=== PATIENT | female | born 1945 | race Caucasian/White ===

== ENCOUNTER 2018-06-29 07:33 | Observation (INO) ==
[2018-06-29] MEDS ORDERED: LACTATED RINGERS 1,000 ML IV ONE (07:37)
[2018-06-29] MEDS ORDERED: HYDROmorphone 2 MG/ML VIAL IV PRN (07:44)
--- NOTE | 2018-06-29 07:47 | Emergency Department Note ---
Abdominal Pain HPI - General Chief Complaint: Abdominal Pain Stated Complaint: upper abd pain, worried about gallbladder Time Seen by Provider: 06/29/18 07:38 Source: patient Mode of arrival: ambulatory Limitations: no limitations - History of Present Illness HPI Narrative: This patient has been having epigastric to right upper quadrant pain since last night. She does feel up in her chest and into her back. No associated nausea. She has a history of GERD but is never had gallbladder disease. MD Complaint: abdominal pain Onset (ago): hour(s) Consistency: constant Location: RUQ, epigastric Quality: stabbing, aching Radiation: back, chest Improves with: nothing Worsens with: eating - Related Data Home Medications Medication Instructions Recorded Confirmed coenzyme Q10 100 mg capsule 100 mg PO QDAY cap 04/02/15 04/02/18 cholecalciferol (vitamin D3) 1,000 1,000 unit PO ONCE cap 05/11/15 04/02/18 unit capsule alpha lipoic acid 600 mg capsule 600 mg PO ONCE 11/06/16 04/02/18 multivitamin tablet 1 tab PO QAM 11/12/17 04/02/18 fortify Probiotic 1 cap PO DAILY 01/12/18 04/02/18 Previous Rx's Medication Instructions Recorded ezetimibe 10 mg tablet 10 mg PO QDAY #90 tab 01/27/18 metoprolol succinate ER 25 mg 25 mg PO QDAY #90 tab 01/27/18 tablet,extended release 24 hr spironolactone 25 mg tablet 25 mg PO QDAY #90 tab 01/27/18 Allergies Allergy/AdvReac Type Severity Reaction Status Date / Time venom-wasp [Wasp Venom] Allergy Unknown Dizziness Verified 06/29/18 07:36 atorvastatin AdvReac Unknown off balance Verified 06/29/18 07:36 Review of Systems All systems ED: reviewed and negative except as stated. Abdominal Pain PMH - Past Medical History Medical history: Reports: GERD, hyperlipidemia, hypertension Surgical history ED: Reports: hysterectomy - Social History Smoking status: Former smoker Physical Exam Limitations: no limitations General appearance: alert Head: atraumatic Eye: Present: normal appearance ENT: normal exam Neck: Present: normal inspection Chest: Present: normal inspection Respiratory: Present: normal lung sounds bilaterally Cardiovascular: Present: regular rate, normal rhythm, normal heart sounds Abdominal: Present: soft, tenderness. Absent: distention, guarding, rebound, rigidity Abdominal tenderness: Present: RUQ, epigastrium Neurological: Present: alert Psychiatric: Present: normal affect Skin: Present: warm, dry, intact Course Vital Signs Temperature 97.8 F 06/29/18 07:34 Pulse Rate 87 06/29/18 07:34 Respiratory Rate 16 06/29/18 07:34 Blood Pressure 168/74 06/29/18 07:34 Pulse Oximetry (%) 94 06/29/18 07:34 Temperature 97.8 F 06/29/18 07:34 Pulse Rate 73 06/29/18 08:41 Respiratory Rate 16 06/29/18 07:34 Blood Pressure 137/65 06/29/18 08:41 Pulse Oximetry (%) 92 06/29/18 08:41 Abdominal Pain - MDM Narrative Medical decision making narrative: This patient has a gallbladder full of stones but normal bile ducts. I discussed case with Dr. Coe and she will be admitted to the surgery service. - Lab Data Lab results reviewed: Yes I reviewed the patient's lab results. Result diagrams: 06/29/18 07:54 06/29/18 07:54 Lab Results 06/29/18 06/29/18 06/29/18 Range/Units 07:54 07:54 07:54 WBC 6.3 (4.5-11.0) K/mcL RBC 4.96 (4.00-5.20) M/mcL Hgb 14.6 (12.0-15.0) g/dL Hct 43.6 (36.0-48.0) % MCV 87.8 (80.0-100.0) fL MCH 29.4 (26.0-34.0) pg MCHC 33.5 (31.0-36.0) g/dL RDW 14.8 H (11.5-14.5) % Plt Count 242 (140-440) K/mcL MPV 9.0 (7.4-10.4) fL Gran % 74.7 (38.0-78.0) % Lymph % (Auto) 20.1 (15.5-49.0) % [place] % (Auto) 3.8 (1.0-12.0) % Eos % (Auto) 1.3 (0.0-7.0) % Baso % (Auto) 0.1 (0.0-2.0) % Gran # 4.7 (1.8-8.0) K/mcL Lymph # (Auto) 1.3 L (1.5-4.8) K/mcL [place] # (Auto) 0.2 (0.1-0.9) K/mcL Eos # (Auto) 0.1 (0.0-0.7) K/mcL Baso # (Auto) 0 (0.0-0.3) K/mcL Sodium 141 (133-145) mmol/L Potassium 4.0 (3.3-5.1) mmol/L Chloride 102 (96-108) mmol/L Carbon Dioxide 24 (22-30) mmol/L Anion Gap 15.0 (8-16) BUN 10 (8-23) mg/dl Creatinine 0.7 (0.6-1.1) mg/dl GFR Calculation 85 Glucose 112 H (70-105) mg/dL Calcium 9.4 (8.6-10.4) mg/dl Total Bilirubin 0.4 (0.0-1.0) mg/dL AST 57 H (0-37) U/l ALT 124 H (0-40) U/l Alkaline Phosphatase 110 (39-117) U/L Troponin T < 0.01 (0-0.03) ng/ml Total Protein 7.2 (5.9-8.4) gm/dL Albumin 4.1 (3.2-5.2) gm/dL Globulin 3.1 (2.2-3.7) gm/dL Albumin/Globulin Ratio 1.3 (1.0-2.3) - Radiology Data Radiology results reviewed: Yes I reviewed the patient's radiology results. Disposition Pt seen by CODING ASSISTANT/PA only: No Clinical Impression: Cholelithiasis Disposition: Xfer As Outpt/Obs ([facility]) Condition: Fair Referrals: Paz Worley, MARGARITA, [facility] [Primary Care Provider] - Time of Disposition: 08:59
[2018-06-29 08:26] LABS: Basophils # (Auto) 0 K/mcL (0.0-0.3); Basophils % (Auto) 0.1 % (0.0-2.0); Eosinophils # (Auto) 0.1 K/mcL (0.0-0.7); Eosinophils % (Auto) 1.3 % (0.0-7.0); Granulocytes % (Auto) 74.7 % (38.0-78.0); Lymphocytes # (Auto) 1.3 K/mcL (1.5-4.8); Lymphocytes % (Auto) 20.1 % (15.5-49.0); Mean Cell Volume 87.8 fL (80.0-100.0); Mean Corpuscular HGB Conc 33.5 g/dL (31.0-36.0); Mean Corpuscular Hemoglobin 29.4 pg (26.0-34.0); Monocytes # (Auto) 0.2 K/mcL (0.1-0.9); Monocytes % (Auto) 3.8 % (1.0-12.0); Platelet Count 242 K/mcL (140-440); RBC 4.96 M/mcL (4.00-5.20); Red Cell Distribution Width 14.8 % (11.5-14.5)
[2018-06-29 08:46] LABS: ALT/SGPT 124 U/l (0-40); Albumin 4.1 gm/dL (3.2-5.2); Albumin/Globulin Ratio 1.3 (1.0-2.3); Alkaline Phosphatase 110 U/L (39-117); Blood Urea Nitrogen 10 mg/dl (8-23)
--- NOTE | 2018-06-29 08:56 | Ultrasound Report ---
History: Mid epigastric pain FINDINGS: The liver is normal in size and homogeneous. Is no evidence of a mass or infiltrative process. Doppler shows normal blood flow in the hepatic and portal veins. The gallbladder is filled with multiple calcified stones. The gallbladder wall is 2 mm in thickness and there is no tenderness while scanning over the gallbladder. No para cholecystic fluid collection is present. The common bile duct measures 3.5 mm. The pancreas is normal in size. There is mild increased echogenicity which suggests fatty infiltration. Pancreatic duct is nondilated. No ascites is present and there is no evidence of a mass in the right upper quadrant. IMPRESSION: Cholelithiasis Dr. Jones was called with the results Interpreted and Authenticated by: Cody Carter 06/29/18
[2018-06-29 09:02] LABS: Lipase 711 U/L (7-60)
[2018-06-29 10:40] LABS: Appearance,Urine CLEAR; Bilirubin,Urine NEG (NEG); Color,Urine STRAW; Glucose,Urine (UA) NEGATIVE (NEG); Leukocyte Esterase,Urine NEG /uL (NEG); Protein,Urine NEG (NEG); Specific Gravity,Urine 1.009 (1.000-1.035); Urine Blood NEG mg/dL (<0.03); Urobilinogen,Urine NEG (NEG)
[2018-06-29] MEDS ORDERED: ONDANSETRON 4 MG/2 ML VIAL IV PRN (10:43)
--- NOTE | 2018-06-29 12:41 | Consultation ---
DATE OF CONSULTATION: 06/29/2018 CHIEF COMPLAINT: The patient is seen in consultation at the request of Dr. Jones for midepigastric abdominal pain and finding of cholelithiasis. HISTORY OF PRESENT ILLNESS: The patient is a 73-year-old woman who presented to the emergency department with complaints of mid upper abdominal pain that has been persistent since yesterday. In recounting the onset of her symptoms, the patient states that her pain initially started late Friday night after dinner. At that time she thought she was having symptoms of reflux as this is a known issue for her. The pain, however, was persistent and seemed to worsen on Friday. She had gone to the local fair but because of the degree of pain she had to leave earlier than planned. She states she did not eat much yesterday. Her last real meal was Friday night. She denies any nausea or vomiting. She describes her pain as a persistent sharp pain that goes through her mid upper abdomen and into her back and seems to also wrap around the upper abdomen. At times she states that it has a feeling like she has a large bubble of gas that might be improved if she were able to belch. She has noted that it hurts to take a deep breath. She also states that when she is still the pain is fairly tolerable, but worsens when she is up and moving. She states that this pain is not typical of her reflux pain. She denies any radiation into her shoulder or her jaw. She denies any numbness. She denies a feeling of dyspnea but just states that it hurts if she takes a deep breath. She did try taking 2 Prilosec and 2 Tylenol at home yesterday to help with her symptoms, but this did not offer significant help. She states the Tylenol seemed to just dull the pain a little. REVIEW OF SYSTEMS: CONSTITUTIONAL: Denies fevers or chills. No unintended or unexpected weight loss. CARDIOVASCULAR: Denies chest pressure or pain unrelated to current symptoms. She reports that she did have a cardiac catheterization about 3 or 4 years ago in [place] when she was having symptoms of reflux disease, but this was reportedly normal. The patient states that she is physically active daily and walks daily. She states that she can walk up 2 flights of stairs without shortness of breath, chest pain or pressure or needing to stop. RESPIRATORY: Denies any new onset of cough or production of sputum. GI: Abdominal pain without nausea or vomiting as per HPI. No history of jaundice or hepatitis. Patient reports a history of diverticulosis with diverticulitis in the past. States she is scheduled for surgery in early August in [place]. : No dysuria or hematuria. She does report an episode of her urine appearing brown/jesús colored in January but this resolved on its own. HEMATOLOGIC: No history of DVT or PE. No history of blood transfusion. NEUROLOGIC: No history of seizure disorder, stroke, or TIA. ENDOCRINE: Denies any history of diabetes. ALLERGIES: No known drug allergies. PAST MEDICAL HISTORY: 1. Gastroesophageal reflux disease. 2. Hypertension. 3. Hyperlipidemia. 4. Left anterior fascicular block. 5. History of cardiac catheterization in 2012, reportedly normal (symptoms were related to reflux disease). 6. Prior cataract surgery. 7. Hysterectomy with left ovary spared. FAMILY HISTORY: Cervical cancer in her daughter. MEDICATIONS: 1. Ezetimibe 10 mg daily. 2. Metoprolol succinate ER 25 mg daily. 3. Multivitamin daily. 4. Spironolactone 25 mg daily. SOCIAL HISTORY: The patient is and accompanied at this visit by her . The patient reports that she is a past smoker of approximately 1 pack every 3 months, which she did for a limited time of only 1 year. She denies any recreational drug use, reports occasional alcohol use, approximately 1 to 2 drinks a month. PHYSICAL EXAMINATION: VITAL SIGNS: Temperature 97.8, pulse 73, respirations 18, blood pressure 144/73, O2 saturation is 95% on room air. GENERAL: Patient is a well-developed, well-nourished woman who appears her stated age in no acute distress. HEENT: Head is normocephalic. Sclerae are white. Mucous membranes are moist. NECK: Supple. CHEST: Breath sounds are clear to auscultation bilaterally. No rales or wheezes are heard. No use of accessory respiratory musculature. She is a little hesitant to take a deep breath which she says is related to pain in her mid-upper abdomen. CARDIOVASCULAR: Reveals a regular rhythm and rate. ABDOMEN: Mildly obese, soft, tender in the midepigastric region with some mild tenderness in the right upper quadrant. Tenderness is greatest in the midepigastric region. No Diaz sign present. No rigidity or rebound tenderness of the abdomen. There are scars at the umbilicus and in the lower abdomen from previous surgery. EXTREMITIES: Warm without edema or cyanosis. DP pulses are palpable bilaterally. LABS AND STUDIES: CBC drawn in the emergency department shows a normal white blood cell count of 6.3 without a left shift. Hemoglobin is 14.6, hematocrit 43.6 and platelets 242. Serum chemistry shows sodium of 141, potassium 4.0, chloride 102, CO2 24, BUN 10, creatinine 0.7, glucose 112, calcium 9.4, total bilirubin 0.4, AST is 57, ALT 124, alkaline phosphatase 110, total protein 7.2, albumin 4.1. Lipase is elevated at 711. Troponin T is normal at less than 0.01. Urinalysis is negative for ketones, blood, nitrites, bilirubin and leukocyte esterase. Ultrasound performed in the emergency department of the right upper abdomen shows the liver is normal in size, without mass. Gallbladder is noted to have multiple calcified stones with gallbladder wall of 2 mm thickness without pericholecystic fluid. No tenderness noted while scanning over the gallbladder. Common bile duct is measuring at 3.5 mm. Pancreas was noted to be of normal size without any dilatation of the pancreatic duct. Mild increased echogenicity suggesting fatty infiltration of the pancreas is noted. FINAL IMPRESSION: By radiologist, cholelithiasis. ASSESSMENT AND PLAN: A 73-year-old woman with mid epigastric pain, elevated lipase and finding of cholelithiasis. I reviewed the imaging results and labs with the patient, which suggests gallstone pancreatitis. This correlates with the history that she gives of progression of her pain and its location and findings on exam. At this time, recommendation is that she remain n.p.o. and be hydrated with fluids and her exam followed along with her labs to allow the pancreatitis to resolve. Because of the presence of gallstones in the setting of pancreatitis, cholecystectomy is eventually recommended for treatment of this. The patient states that she is already scheduled for surgery in early August for her colon and is wondering if this could be delayed and done at the same time as that. She also reports that she and her are scheduled to travel to [place] for follow-up appointments for him with his doctors there and she does not want to have anything interfere with that timing. I explained to the patient in the usual recommendation that once the pancreatitis resolves, cholecystectomy should be performed within a short period to minimize the risk of recurrence of pancreatitis and other complications from the cholelithiasis. However, given her concerns and other previously scheduled appointments, we can discuss timing of cholecystectomy once we know the progression of her current illness. [email or web address]:yael Job ID: [id number] Doc ID: [id number] Amber Coe MD
[2018-06-29] MEDS: LACTATED RINGERS 1,000 ML IV SCH ×2 (13:28→22:55)
[2018-06-29] MEDS: ACETAMINOPHEN 1,000 MG/100 ML BOTTLE IV PRN ×2 (14:37→22:59)
[2018-06-30 06:27] LABS: Basophils # (Auto) 0 K/mcL (0.0-0.3); Basophils % (Auto) 0.3 % (0.0-2.0); Eosinophils # (Auto) 0.1 K/mcL (0.0-0.7); Eosinophils % (Auto) 1.6 % (0.0-7.0); Granulocytes % (Auto) 66.1 % (38.0-78.0); Lymphocytes # (Auto) 1.6 K/mcL (1.5-4.8); Lymphocytes % (Auto) 28.1 % (15.5-49.0); Mean Cell Volume 88.3 fL (80.0-100.0); Mean Corpuscular HGB Conc 34.1 g/dL (31.0-36.0); Monocytes # (Auto) 0.2 K/mcL (0.1-0.9); Monocytes % (Auto) 3.9 % (1.0-12.0); Platelet Count 221 K/mcL (140-440); RBC 4.26 M/mcL (4.00-5.20); Red Cell Distribution Width 14.5 % (11.5-14.5)
[2018-06-30 06:51] LABS: ALT/SGPT 79 U/l (0-40); Albumin 3.7 gm/dL (3.2-5.2); Albumin/Globulin Ratio 1.4 (1.0-2.3); Alkaline Phosphatase 94 U/L (39-117); Bilirubin,Direct < 0.2 mg/dL (0.0-0.3); Blood Urea Nitrogen 9 mg/dl (8-23); Gamma Glutamyl Transpeptidase 378 U/L (5-36); Lipase 164 U/L (7-60); Uric Acid 5.7 mg/dL (2.5-8.0)
[2018-06-30] MEDS: LACTATED RINGERS 1,000 ML IV SCH ×2 (09:49→20:16)
[2018-06-30] MEDS: ACETAMINOPHEN 1,000 MG/100 ML BOTTLE IV PRN (09:49)
[2018-06-30] MEDS: PANTOPRAZOLE 40 MG VIAL IV SCH (09:50)
--- NOTE | 2018-06-30 12:09 | General Surgery Progress Note ---
Surgical - Auxillary Note - Subjective Patient Information: Note initiated : 06/30/18 at 9:43 am Service Date, if different from initiated Date: [] Patient: Monika Wright 73 y/o F admitted on 06/29/18 for Upper Abd Pain, Worried About Gall Bladder. Chief Complaint: [] Patient resting in bed on her side. States she is feeling less pain this morning; able to turn on her side without significant pain. Denies nausea or emesis. Vital Signs Temp Pulse Resp BP Pulse Ox 98.1 F 77 20 163/80 92 06/30/18 07:58 06/30/18 08:00 06/30/18 07:58 06/30/18 07:58 06/30/18 07:58 Period Temp Pulse Resp BP Sys/Stack Pulse Ox Last 24 Hr 97.6 F-98.9 F 67-84 12-22 134-179/61-80 91-95 Intake and Output 06/29/18 06/30/18 06/30/18 21:59 05:59 13:59 Intake Total 100 / 100 1045 / 1045 1100 / 1100 Output Total 200 / 200 Balance 100 / 100 845 / 845 1100 / 1100 Weight 168 lb PE: No distress. HEENT: sclera white. membranes moist Chest: clear bilaterally CV: regular rate and rhythm ABD: soft, mild midepigastric tenderness--less than yesterday. Mild RUQ tenderness also less--no gordon's sign. no rebound or guarding. EXT: warm, no edema. CBC and Chem 7 06/30/18 04:28 06/30/18 04:28 A/P: gallstone pancreatitis. Clinically improving and Lipase trending down at 164 this morning. Reviewed findings of cholelithiasis on imaging again with patient and recommendation for cholecystectomy. Risks, benefits and alternatives to cholecystectomy were reviewed with the patient. Risks of surgery include but are not limited to bleeding, infection, injury to the common bile duct, injury to bowel and other organs, bile leak, risks of general anesthesia and possible need for conversion from laparoscopic to open procedure. Patient's and her 's questions were answered. She wishes to proceed with laparoscopic cholecystectomy, possible open procedure.
[2018-06-30] MEDS: SPIRONOLACTONE 25 MG TABLET PO SCH (18:29)
[2018-06-30] MEDS: METOPROLOL SUCCINATE 25 MG TAB.XL.24H PO SCH (18:29)
[2018-07-01 06:22] LABS: Basophils # (Auto) 0 K/mcL (0.0-0.3); Basophils % (Auto) 0.5 % (0.0-2.0); Eosinophils # (Auto) 0.1 K/mcL (0.0-0.7); Eosinophils % (Auto) 1.8 % (0.0-7.0); Granulocytes % (Auto) 69.3 % (38.0-78.0); Lymphocytes # (Auto) 1.5 K/mcL (1.5-4.8); Lymphocytes % (Auto) 24.4 % (15.5-49.0); Mean Cell Volume 87.9 fL (80.0-100.0); Mean Corpuscular HGB Conc 34.2 g/dL (31.0-36.0); Mean Corpuscular Hemoglobin 30.1 pg (26.0-34.0); Monocytes # (Auto) 0.3 K/mcL (0.1-0.9); Platelet Count 219 K/mcL (140-440); RBC 4.24 M/mcL (4.00-5.20)
--- NOTE | 2018-07-01 06:26 | General Surgery Progress Note ---
Surgical - Auxillary Note - Subjective Patient Information: Note initiated : 07/01/18 at 6:26 am Service Date, if different from initiated Date: [] Patient: Monika Wright 73 y/o F admitted on 06/29/18 for Upper Abd Pain, Worried About Gall Bladder. Chief Complaint: [] Patient resting in bed. Reports she is feeling better. Midepigastric pain continues to lessen. No nausea or vomiting. Vital Signs Temp Pulse Resp BP Pulse Ox 97.7 F 71 20 134/65 94 07/01/18 04:00 07/01/18 04:00 07/01/18 04:00 07/01/18 04:00 07/01/18 04:00 Period Temp Pulse Resp BP Sys/Stack Pulse Ox Last 24 Hr 97.7 F-98.6 F 71-77 20-20 134-172/65-80 92-95 Intake and Output 06/30/18 07/01/18 07/01/18 21:59 05:59 13:59 Intake Total 1000 / 1000 0 / 0 Output Total 2550 / 2550 700 / 700 Balance -1550 / -1550 -700 / -700 Weight 165 lb 8 oz PE: HEENT: sclera white Chest: clear bilaterally CV: regular rhythm and rate ABD: soft, mild midepigastric tenderness--less than yesterday. Minimal RUQ tenderness. No gordon's sign. No rebound or guarding. CBC and Chem 7 07/01/18 04:36 07/01/18 04:36 A/P: gallstone pancreatitis. Pancreatitis clinically resolving and lipase near normal Plan laparoscopic cholecystectomy today.
[2018-07-01] MEDS: LACTATED RINGERS 1,000 ML IV SCH (06:41)
[2018-07-01 06:52] LABS: ALT/SGPT 60 U/l (0-40); Albumin 3.7 gm/dL (3.2-5.2); Albumin/Globulin Ratio 1.4 (1.0-2.3); Alkaline Phosphatase 90 U/L (39-117); Bilirubin,Direct < 0.2 mg/dL (0.0-0.3); Blood Urea Nitrogen 11 mg/dl (8-23); Gamma Glutamyl Transpeptidase 335 U/L (5-36); Uric Acid 7.3 mg/dL (2.5-8.0)
[2018-07-01] MEDS ORDERED: KETAMINE 100 MG/ML ML IV ONE (07:40)
[2018-07-01] MEDS ORDERED: NEOSTIGMINE 1 MG/ML VIAL IV ONE (07:40)
[2018-07-01] MEDS ORDERED: PHENYLEPHRINE 10 MG/ML VIAL IV ONE (07:40)
[2018-07-01] MEDS ORDERED: ROCURONIUM 10 MG/ML ML IV ONE (07:40)
[2018-07-01] MEDS ORDERED: MIDAZOLAM 2 MG/2 ML VIAL IV ONE (07:40)
[2018-07-01] MEDS ORDERED: fentaNYL 250 MCG/5 ML VIAL IV ONE (07:40)
[2018-07-01] MEDS ORDERED: SUCCINYLCHOLINE 20 MG/ML ML IV ONE (07:40)
[2018-07-01] MEDS ORDERED: DEXAMETHASONE 10 MG/ML VIAL IV ONE (07:40)
[2018-07-01] MEDS ORDERED: GLYCOPYRROLATE 0.2 MG/ML VIAL IV ONE (07:40)
[2018-07-01] MEDS ORDERED: ONDANSETRON 4 MG/2 ML VIAL IV ONE (07:40)
[2018-07-01] MEDS ORDERED: LIDOCAINE HCL/PF 100 MG/5 ML SYRINGE IV ONE (07:40)
[2018-07-01] MEDS ORDERED: PROPOFOL 200 MG/20 ML VIAL IV ONE (07:40)
[2018-07-01] MEDS ORDERED: PIPERACILLIN SODIUM/TAZOBACTAM 3.375 GM in DEXTROSE 5% IN WATER 50 ML IV SCH (07:45)
[2018-07-01] MEDS ORDERED: ROPIVACAINE HCL/PF 30 ML VIAL IJ ONE (08:00)
[2018-07-01] MEDS ORDERED: fentaNYL 100 MCG/2 ML VIAL IV PRN (08:31)
[2018-07-01] MEDS ORDERED: FLUMAZENIL 0.1 MG/ML ML IV PRN (08:31)
[2018-07-01] MEDS ORDERED: BENZOCAINE/MENTHOL 1 LOZENGE PO PRN (08:31)
[2018-07-01] MEDS ORDERED: LACTATED RINGERS 250 ML IV PRN (08:31)
[2018-07-01] MEDS ORDERED: MEPERIDINE 25 MG/ML SYRINGE IV PRN (08:31)
[2018-07-01] MEDS ORDERED: IPRATROPIUM/ALBUTEROL 3 ML AMPUL.NEB NEB PRN (08:31)
[2018-07-01] MEDS ORDERED: ACETAMINOPHEN 1,000 MG/100 ML BOTTLE IV ONE (08:31)
[2018-07-01] MEDS ORDERED: ONDANSETRON 4 MG/2 ML VIAL IV PRN ×2 (08:31→10:50)
[2018-07-01] MEDS ORDERED: PROMETHAZINE 25 MG/ML VIAL IV PRN (08:31)
[2018-07-01] MEDS ORDERED: NALOXONE HCL 0.4 MG/ML VIAL IV PRN ×2 (08:31→11:48)
[2018-07-01] MEDS ORDERED: LACTATED RINGERS 1,000 ML IV SCH (08:45)
--- NOTE | 2018-07-01 09:48 | Brief Operative Note ---
Date of procedure: 07/01/18 Pre-op diagnosis: gallstone pancreatitis--resolved: cholelithiasis Post-op diagnosis: same Procedure: Laparoscopic Cholecystectomy Grafts/Implants: No Anesthesia: GETA Findings: cholelithiasis and mild inflammation of gallbladder Complications: none Surgeon: Amber Coe Estimated blood loss (cc): 10 Specimens Removed/Pathology: other (gallbladder) Condition: stable Disposition: PACU
[2018-07-01] MEDS ORDERED: LIDOCAINE 1% 20 ML VIAL SQ ONE (10:20)
--- NOTE | 2018-07-01 10:26 | Operative Note ---
DATE OF OPERATION: 07/01/2018 PREOPERATIVE DIAGNOSIS: Gallstone pancreatitis. POSTOPERATIVE DIAGNOSIS: Gallstone pancreatitis with resolution of pancreatitis. PROCEDURE PERFORMED: Laparoscopic cholecystectomy. SURGEON: Amber Coe MD ANESTHETIC: General endotracheal anesthesia provided by Reginaldo Saenz CRNA. INDICATIONS FOR PROCEDURE: The patient is a 73-year-old woman who presented to the emergency department the day before yesterday with complaints of midepigastric abdominal pain beginning 2 days prior and progressively worsening to the point where she had no appetite, and significant pain unlike pain she has had before. On evaluation in the emergency department patient was noted to have an elevated lipase level and cholelithiasis seen on ultrasound. Examination revealed tenderness in the midepigastric region with no evidence of a Diaz's sign, although there was some mild tenderness in the right upper quadrant. The patient was admitted with a diagnosis of gallstone pancreatitis and treated conservatively with bowel rest and IV fluid hydration. Over the subsequent 24 hours she had improvement in her pain and decreased levels of her lipase with subsequent almost complete resolution of her pain by this morning and a near normal lipase this morning. She was brought to the operating room for cholecystectomy for residual cholelithiasis. DESCRIPTION OF PROCEDURE: After obtaining informed consent, the patient was taken to the operating room where a timeout was taken to confirm that she was here for the above-stated procedure. She was given antibiotics preoperatively and SCDs were placed for DVT prophylaxis. She was placed in the supine position on the operating table and general endotracheal anesthesia was induced. A Stokes catheter was inserted under sterile technique and this was removed upon completion of the operation. The abdomen was then prepped and draped in a sterile manner. The abdomen was entered via supraumbilical incision. A scalpel was used to incise vertically just above the umbilicus and dissection was carried out through subcutaneous tissues bluntly until the abdominal wall fascia was encountered. Two stay sutures were placed on either side of the midline of the abdominal fascia and then the fascia was incised using electrocautery. The underlying peritoneum was grasped and incised with Metzenbaum scissors. Upon entering the peritoneal cavity finger palpation was performed revealing no adhesions of the underlying tissue. The Jayden trocar was then placed. The abdomen was then insufflated with carbon dioxide and pneumoperitoneum was established. Three other trocars were placed through the abdominal wall under direct vision of laparoscope; a 5 mm port in the midepigastric region, 5 mm port in the right subcostal region, and a 5 mm port in the right lateral abdomen. The gallbladder was identified in its normal position with some mild inflammatory changes consistent with recent episode of pancreatitis. It was grasped at its fundus and retracted cephalad. The infundibulum was retracted laterally and the neck of the gallbladder was easily seen. Blunt dissection was performed using a [place] dissector to dissect out the neck of the gallbladder moving proximally onto the cystic duct. Once the cystic duct was clearly identified circumferentially with blunt dissection, it was ligated with Hemoclips leaving three Hemoclips on the side to remain and one on the gallbladder side. Next, the cystic artery was identified and seen along its length entering onto the wall of the gallbladder. It was dissected out circumferentially using a [place] dissector. The cystic artery was then doubly ligated with Hemoclips on the side to remain and a single Hemoclip on the gallbladder side. Next, the cystic duct and cystic artery were each transected using EndoShears between clips that had previously been placed. The gallbladder was then removed from the liver bed using electrocautery. Once removed from the liver bed, it was placed in an endocatch device and removed via the Ajyden trocar site. Pneumoperitoneum was reestablished. Right upper quadrant was irrigated and suctioned of the irrigant. The cystic duct and cystic artery remnants were inspected for any evidence of bile leak or bleeding; there was none. The liver bed was also inspected for any evidence of bile leak or bleeding; there was none. Next, the three 5 mm trocars were removed from their sites while inspecting the trocar sites with the laparoscope for any bleeding; there was none. The Jayden trocar site was also inspected for any bleeding as it was removed and none was noted. Pneumoperitoneum was evacuated. The fascia at the Jayden trocar site was closed using 0 Vicryl suture in a running fashion. Skin and subcutaneous tissues of all the incisions was irrigated with saline. The skin and subcutaneous tissues of each of the incisions was also injected with local anesthetic mixture of 1% lidocaine and 0.5% ropivacaine in a 50/50 mixture to help with postoperative pain control. The skin incisions at each trocar site were then closed with 4-0 Monocryl suture in a running intracuticular fashion. Sponge and needle counts were correct at the end of the case. The patient tolerated the procedure well and there were no immediate complications. SPECIMEN: Gallbladder. IV FLUIDS: 1700 mL URINE OUTPUT: 300 ESTIMATED BLOOD LOSS: 10 mL RC:yael Job ID: [id number] Doc ID: [id number] Amber Coe MD
[2018-07-01] MEDS: SPIRONOLACTONE 25 MG TABLET PO SCH (10:46)
[2018-07-01] MEDS: METOPROLOL SUCCINATE 25 MG TAB.XL.24H PO SCH (10:46)
[2018-07-01] MEDS: PANTOPRAZOLE 40 MG VIAL IV SCH (10:47)
[2018-07-01] MEDS ORDERED: ACETAMINOPHEN 1,000 MG/100 ML BOTTLE IV PRN (10:50)
[2018-07-01] MEDS ORDERED: KETOROLAC 30 MG/ML VIAL IV PRN (11:47)
--- NOTE | 2018-07-01 17:52 | General Surgery Progress Note ---
Surgical - Auxillary Note - Subjective Patient Information: Note initiated : 07/01/18 at 5:49 pm Service Date, if different from initiated Date: [] Patient: Monika Wright 73 y/o F admitted on 06/29/18 for Upper Abd Pain, Worried About Gall Bladder. Chief Complaint: [] Post op visit. Patient rested initially post op. Received IV pain meds and now feeling better. Has had some clear liquids and has been up walking in the halls. No nausea or vomiting. Reports soreness at midepigastric area but this is a different pain than on admission; believes it is related to the surgery. A/P: clear liquids tonight labs ordered for the morning. If doing well tomorrow can go home.
[2018-07-01] MEDS ORDERED: HYDROcodone/APAP 5/325MG TABLET PO PRN (20:24)
[2018-07-02 06:16] LABS: Basophils # (Auto) 0 K/mcL (0.0-0.3); Basophils % (Auto) 0.3 % (0.0-2.0); Eosinophils # (Auto) 0 K/mcL (0.0-0.7); Eosinophils % (Auto) 0 % (0.0-7.0); Granulocytes % (Auto) 85.4 % (38.0-78.0); Lymphocytes # (Auto) 0.8 K/mcL (1.5-4.8); Mean Cell Volume 87.1 fL (80.0-100.0); Mean Corpuscular HGB Conc 34.8 g/dL (31.0-36.0); Mean Corpuscular Hemoglobin 30.3 pg (26.0-34.0); Monocytes # (Auto) 0.5 K/mcL (0.1-0.9); Monocytes % (Auto) 5.3 % (1.0-12.0); Platelet Count 241 K/mcL (140-440); RBC 4.21 M/mcL (4.00-5.20); Red Cell Distribution Width 14.1 % (11.5-14.5)
[2018-07-02 06:35] LABS: ALT/SGPT 51 U/l (0-40); Albumin 3.8 gm/dL (3.2-5.2); Albumin/Globulin Ratio 1.4 (1.0-2.3); Alkaline Phosphatase 83 U/L (39-117); Bilirubin,Direct < 0.2 mg/dL (0.0-0.3); Blood Urea Nitrogen 11 mg/dl (8-23); Gamma Glutamyl Transpeptidase 313 U/L (5-36); Lipase 43 U/L (7-60); Uric Acid 8.1 mg/dL (2.5-8.0)
--- NOTE | 2018-07-02 06:54 | General Surgery Progress Note ---
Surgical - Auxillary Note - Subjective Patient Information: Note initiated : 07/02/18 at 6:53 am Service Date, if different from initiated Date: [] Patient: Monika Wright 73 y/o F admitted on 06/29/18 for Upper Abd Pain, Worried About Gall Bladder. Chief Complaint: [] Patient resting in bed. No distress. Tolerated liquids. Reports soreness in abdominal muscles as if she did many crunches. Vital Signs Temp Pulse Resp BP Pulse Ox 97.8 F 69 20 137/68 94 07/02/18 04:00 07/02/18 04:00 07/02/18 04:00 07/02/18 04:00 07/02/18 04:00 Period Temp Pulse Resp BP Sys/Stack Pulse Ox Last 24 Hr 97.0 F-99.0 F 55-77 12-20 116-161/52-79 92-99 Intake and Output 07/01/18 07/02/18 07/02/18 21:59 05:59 13:59 Intake Total 500 / 500 Output Total 1150 / 1150 400 / 400 Balance -1150 / -1150 100 / 100 Weight 169 lb 8 oz PE: No distress. Alert and oriented and in good spirits. HEENT: sclera white. Membranes moist. Chest: clear bilaterally. No rales or wheezes. No pain on inspiration. CV: regular rate and rhythm ABD: soft, mild incisional tenderness. Tenderness in midepigastric area from presentation is gone. No rebound or guarding. EXT: warm, no edema. CBC and Chem 7 07/02/18 05:05 07/02/18 05:05 A/P: s/p Lap Cholecystectomy; resolved gallstone pancreatitis. Tolerated clear liquids. Lipase normal this morning. Advance to low fat diet and if tolerated home today. F/U one week in surgery clinic.
[2018-07-02] MEDS ORDERED: PANTOPRAZOLE 40 MG VIAL IV SCH (07:30)
[2018-07-02] MEDS ORDERED: METOPROLOL SUCCINATE 25 MG TAB.XL.24H PO SCH (09:00)
[2018-07-02] MEDS ORDERED: SPIRONOLACTONE 25 MG TABLET PO SCH (09:00)
--- NOTE | 2018-07-02 09:26 | Discharge Summary ---
Providers - Providers Patient information: Note initiated : 07/02/18 at 9:22 am Service Date, if different from initiated Date: [] Patient: Monika Wright 73 y/o F admitted on 06/29/18 for Upper Abd Pain, Worried About Gall Bladder. Chief Complaint: [] Discharge date: 07/02/18 Attending physician: Amber Coe Hospitalization Hospital course: Ms. Ivy was admitted on 06/29/18 with diagnosis of gallstone pancreatitis. She was treated with bowel rest and IV fluid hydration while her pancreatitis resolved. On hospital day 3 she was taken to the operating room where laparoscopic cholecystectomy was performed. She did well postoperatively and was started on clear liquids. Pain medication requirements were minimal. On POD#1 she was doing well. Lipase was normal. She was advanced to a low fat diet which was tolerated. She was discharged home with f/u scheduled for next week in clinic. Discharge diagnosis: gallstone pancreatitis, cholelithiasis Reason for admission: gallstone pancreatitis Procedures: laparoscopic cholecystectomy Exam Temp Pulse Resp BP Pulse Ox 97.8 F 72 18 132/71 94 07/02/18 07:18 07/02/18 07:18 07/02/18 07:18 07/02/18 07:18 07/02/18 07:18 Discharge Plan - Patient/Caregiver Discharge Instructions Activity: increase activity as tolerated (no lifting more than 8 pounds for 4-6 weeks) Diet: Low Fat Additional Instructions: may shower or sponge bathe. No soaking in tub or pool etc for two weeks. Prescriptions: HYDROcodone/APAP 5/325MG [[place] 5-325Mg] 1 tab PO Q4-6HP PRN #10 tab PRN Reason: Pain Level 3-6 - Follow up Plan Follow up with: Paz Worley, MARGARITA, [employer]PERATOR [Primary Care Provider] - Disposition: Home, Self-Care Prognosis: Good Rehab Potential: Good I certify that the patient requires SNF services.: No Overall status at discharge: patient is progressing back to baseline Pending Studies Resuscitation Status Full Code Diet Low Fat Diet Start Marleny Jul 02 706 Ketorolac Tromethamine (Toradol) 30 mg IV Q8HP PRN PRN Reason: Pain Stop: 07/03/18 11:48 Last Admin: 07/01/18 14:29 Dose: 30 mg Pantoprazole Sodium [facility]Protonix) [facility] Last Admin: 07/02/18 07:00 Dose: 40 mg Shift Summary 07/02/18 04:17 Shift Summary by Randee Branch Patient denies any pain. No complaints of nausea or vomiting. Passing flatus but no BM yet.4 lap sites-bandaid in place CDI. Tolerating clear liquids. Up ad mary in room. IV on LFA kept saline locked. For possible discharge today. Initialized on 07/02/18 04:17 - END OF NOTE
--- NOTE | 2018-07-02 15:35 | Surgical Pathology Report ---
HISTOLOGY SPECIMEN MICROSCOPIC DIAGNOSIS GALLBLADDER, CHOLECYSTECTOMY: -- CHRONIC CHOLECYSTITIS WITH CHOLELITHIASIS. (EBD:adj) PROCEDURAL IMPRESSION Gallstone pancreatitis. GROSS DESCRIPTION Received in formalin labeled with the patient information and designated gallbladder, is a 9.6 x 3 x 1.9 cm pink-corona gallbladder. The majority of the serosa is smooth and glistening with approximately 15% roughened brown-corona. There is a metal clamp present that is partially on the cystic duct. The mucosa is velvety pink-corona with multiple stone imprints in the mucosa along with multiple black stone fragments embedded in the wall near the cystic duct. The wall is up to 0.5 cm thick. There are multiple multifaceted green-brown stones in the gallbladder ranging in size from 0.1-0.5 cm. [employer] sections submitted - one cassette. (KGW:sln) Electronically Signed by: aFriha Michaud M.D.
== END 2018-07-02 12:05 | disposition home or self-care (01) ==
LOC: MEDSUR 07:33 → ED 07:33 → MEDSUR 11:05
PROVIDERS: ADMIT Surgery; ATTEND Surgery